=== PATIENT | female | born 1955 | race Caucasian/White ===

== ENCOUNTER 2019-03-03 10:00 | Outpatient (RCR) ==
--- NOTE | 2019-02-02 15:19 | RS.OPPTEV2 ---
Date of Note: 02/02/19 Visit #: 1 Number of visits approved by Insurance: NA Date of Evaluation: 02/02/19 Payer Source: MEDICARE Date of Onset/Injury/Change in Status: 01/20/19 Surgery Performed?: Yes Procedure Performed: Left TKA Date of Procedure: 01/20/19 Treatment Diagnosis: Left knee pain, Left knee stiffness, S/P left TKA History of Condition/Mechanism of Injury:: Patient reports progressive left knee pain and decreased functional ability, led to a total knee replacement. States the right knee also has significant osteoarthritis. Prior Level of Function.....Patient was independent with: ADL's, Self Care, Caregiving, Ambulation/Mobility, Community Integration/Access Functional Limitations: ADL's, Sitting, Standing, Bending, Squatting, Ambulation , Community Access/Integration Current Subjective/complaints:: Patient reports left knee pain and stiffness following TKA. She was in the hospital a few days and then went home and has not had Home Health. She was not given a HEP from the hospital. States she had to go back and have a hematoma aspirated on 01/27/19. Ms. Avendano has been icing the knee and performing ankle pumps. States she is getting around her home pretty good with the walker. She has no stairs at her apartment. States her swelling and redness has gone down since having the hematoma removed. States she mainly takes Tylenol for pain. She is already taking Tramadol for Lupus and it also seems to help her knee pain. Treatment Side (optional): Left Medical History Medical History Comments:: Lupus, Osteoarthritis in knees, back, hips, HTN, CVA Surgical History Comments:: Right ROSEMARIE, Lumbar surgery, Appendectomy, Cholecystectomy Smoking Status: Former smoker Hx Home Medications: Tramadol, Tylenol, Percocet Patient's Goals: Her goal is to return to her previous level of function. Pain Assessment - Pain Description Pain Location: left knee Pain Description: Aching, Acute Current Pain Intensity: 8-9/10 Worst Pain Intensity: 10/10 Functional Outcome Measure LE Functional Scale: 3 (=96.25% impairment) - G Codes & Severity Modifier G Codes & Modifier: NA Source of G Code score: NA Observation - Observation Inspection: Presents with healing, clean 6.5 inch incision. The most superior 1.5 inch of the incision is scabbed, and the inferior half of the incision has several areas of scabbing and dry skin. She demonstrates dull redness throughout the anterior aspect of the knee joint. This appears to be an improvement compared to a picture of the knee last week that the patient had on her phone. Girth Measurement Lower: Most superior aspect of the incision 47 cm, most inferior aspect 40 cm. Gait - Gait Pattern Gait Comments: Transfers sit to stand independently. Patient ambulates with rolling walker independently. She demonstrates decreased left heelstrike, stance phase, and toe off. Also demonstrates decreased left knee flexion during swing phase. - Left Knee ROM Left Knee Extension: -13 degrees from full extension Left Knee Flexion: 52 (degrees AROM) Knee ROM Limitations: Soft Tissue Tightness, Pain - Right Knee ROM Right Knee Extension: full extension Right Knee Flexion: 128 (degrees AROM) - Left Knee Strength Left Knee Extension: 4- Good- Left Knee Flexion: 4 Good - Right Knee Strength Right Knee Extension: 4+ Good + Right Knee Flexion: 4+ Good + Palpation Comments:: Patient reports minimal tenderness at the posterior aspect of the knee. She reports slight tenderness along the sides of the incision. Sensation - Sensation Comments: Describes slight numbness along the lateral side of the right knee. - Heat/Cryotherapy Treatment: Cryotherapy (with the leg elevated) Comments:: X 10 mins following evaluation and ROM. Interventions - Exercise/Activities/Manual Therapy Exercises/Activities: Assisted patient with left knee AROM flex/extension. Provided gentle stretching to the left heelcord with knee extension. Patient instructed in HEP of ankle pumps, QS, SAQ's, standing HS curls, seated knee flexion, and SLR's. Advised to perform SLR's with help if she demonstrates a lag at the knee. Also encouraged her to elevate the leg and to continue to ice the right knee to help decrease her swelling. Total minutes of Exercise: X 19 mins Manual Therapy: Grades I and II Joint Mobilizations into distraction. Patient reports this feels really good. HOME EXERCISE PROGRAM: ankle pumps, QS, SAQ's, standing HS curls, seated knee flexion, and SLR's. - Charges Timed Code Treatment Minutes: 19 mins Total Treatment Time: 57 mins Procedures billed for this date of service:: EVAL Low, Ex EVALUATION COMPLEXITY LEVEL EVALUATION COMPLEXITY LEVEL: HISTORY: Medium (Lupus, HTN, Hx of lumbar sx, right ROSEMARIE), EXAM OF BODY SYSTEMS: Medium (Gait, ROM, sensation, swelling, Muscle strength), CLINICAL PRESENTATION: Low (stable ), CLINICAL DECISION MAKING : Low Assessment Assessment: Patient presents to therapy almost two weeks s/p left TKA. She demonstrates marked limitation of left knee ROM. Reports knee pain and limited ROM make her daily selfcare and ADL's difficult. She lives alone. She has difficulty getting in and out of a vehicle and is not able to drive at this time. She demonstrates good potential to regain functional left knee AROM to return to her previous level of function and independence. Patient Education: Education of diagnosis, Body/Joint mechanics, Home Exercise Program, Home Safety, Activity Modification, Education of Plan of Care Rehab Potential: Good Short Term Goals Goal #1: Patient independent in HEP. Goal to be met by: 02/23/19 Goal #2: Left knee active flexion to 85 degrees. Goal to be met by: 02/23/19 Goal #3: Quad strength improved to 4/5. Goal to be met by: 02/23/19 Goal #4: Pt demo. appropriate use of cane with ambulation in department. Goal to be met by: 02/23/19 Campus Recruiter Goals Goal #1: Pt knows HEP and to continue ex's to maintain functional level at D/C. Goal to be met by: 03/19/19 Goal #2: Score on LE functional scale improved to 42/80. Goal to be met by: 03/19/19 Goal #3: Pt to amb. with cane community distances with minimal gt deviations. Goal to be met by: 03/19/19 Goal #4: Left knee AROM WFL's to perform all ADL's and prior functional activities. Goal to be met by: 03/19/19 Plan - Treatment to be Provided Procedures: Therapeutic Exercises, Therapeutic Activity, Gait Training, Neuromuscular Rehab, Patient Education Modalities: Electrical Stimulation, Cryotherapy, Hot Packs (to quads prior to exercise if needed) - Treatment Plan Frequency: 2-3 X week Duration: 6 weeks Dates of Penitentiary Goals: 03/19/19 Expiration date of current Insurance Approval:: NA - Treatment Code (1) Knee pain Code(s): M25.569 - PAIN IN UNSPECIFIED KNEE Qualifiers: Chronicity: acute Laterality: left Qualified Code(s): M25.562 - Pain in left knee (2) Knee stiffness Qualifiers: Laterality: left Qualified Code(s): M25.662 - Stiffness of left knee, not elsewhere classified (3) Aftercare following joint replacement surgery Code(s): Z47.1 - AFTERCARE FOLLOWING JOINT REPLACEMENT SURGERY Qualifiers: Joint replacement surgery site: knee Laterality: left Qualified Code(s): Z47.1 - Aftercare following joint replacement surgery; Z96.652 - Presence of left artificial knee joint (4) Gait abnormality Code(s): R26.9 - UNSPECIFIED ABNORMALITIES OF GAIT AND MOBILITY Comments: R26.9
--- NOTE | 2019-02-04 11:17 | RS.OPPTDN ---
Subjective Date of Note: 02/04/19 Visit #: 2 Number of visits approved by Insurance: NA Date of Evaluation: 02/02/19 Payer Source: MEDICARE Treatment Diagnosis: Left knee pain, Left knee stiffness, S/P left TKA Current Subjective/complaints:: Patient reports stiffness left knee and soreness behind knee and into calf. States she is working on HEP. Pain Assessment - Pain Description Pain Location: Left knee Pain Description: Tightness, Aching Current Pain Intensity: mod - Treatment Modality: Electrical Stim Unattended Parameters/Method Applied: [id number] HVGC to 295-310p.v. 4 large pads cross current to the left knee with CP prior to EX. Patient in supine with left LE elevated. Patient Position: Supine - Heat/Cryotherapy Treatment: Cryotherapy (with Estim ) Interventions - Exercise/Activities/Manual Therapy Exercises/Activities: Assisted patient with left knee AROM flex/extension. Gentle stretching to the left heelcord with knee extension. AP, QS with verbal and tactile cues. Assisted SLR and hip abd. Red theraband for resisted ankle df. Assisted heel slides. Sitting ABS assisted knee flexion/ext, passive flexion stretch, red theraband for zelaya curl. Discussed HEP. Total minutes of Exercise: 25mins Manual Therapy: Grades I and II Joint Mobilizations into distraction. Manual therapy for direction massage at the lower left leg. Total minutes of Manual Therapy: 7mins HOME EXERCISE PROGRAM: ankle pumps, QS, SAQ's, standing HS curls, seated knee flexion, and SLR's. - Objective Findings Observations,measurements,etc.: Left knee assisted left knee flexion to 90 degrees consistently sitting ABS. - Charges Timed Code Treatment Minutes: 32mins Total Treatment Time: 52mins Procedures billed for this date of service:: CP, Estim unattended, EX2 Assessment: Patient responding well to treatment and ROM improving. Patient Education: Body/Joint mechanics, Home Exercise Program, Activity Modification Patient demonstrates compliance with HEP?: Yes Short Term Goals Goal #1: Patient independent in HEP. Goal to be met by: 02/23/19 Progress towards Goal:: Progressing Goal #2: Left knee active flexion to 85 degrees. Goal to be met by: 02/23/19 Progress towards Goal:: Partially Met Goal #3: Quad strength improved to 4/5. Goal to be met by: 02/23/19 Goal #4: Pt demo. appropriate use of cane with ambulation in department. Goal to be met by: 02/23/19 Chief Diversity Officer Goals Goal #1: Pt knows HEP and to continue ex's to maintain functional level at D/C. Goal to be met by: 03/19/19 Goal #2: Score on LE functional scale improved to 42/80. Goal to be met by: 03/19/19 Goal #3: Pt to amb. with cane community distances with minimal gt deviations. Goal to be met by: 03/19/19 Goal #4: Left knee AROM WFL's to perform all ADL's and prior functional activities. Goal to be met by: 03/19/19 Plan Dates of Chief Diversity Officer Goals: 03/19/19 Expiration date of current Insurance Approval:: 03/19/19 PLAN: Continue modalities and progress exercise to increase patients functional activity level.
--- NOTE | 2019-02-06 13:56 | RS.OPPTDN ---
Subjective Date of Note: 02/06/19 Visit #: 3 Number of visits approved by Insurance: na Date of Evaluation: 02/02/19 Payer Source: MEDICARE Treatment Diagnosis: Left knee pain, Left knee stiffness, S/P left TKA Current Subjective/complaints:: Patient reports continued tightness left knee, but feels she is doing better each day. Pain Assessment - Pain Description Pain Location: left knee Pain Description: Tightness Current Pain Intensity: 3-4/10 - Treatment Modality: Electrical Stim Unattended Parameters/Method Applied: [id number] [facility] murray 275p.v. with 4 large pads cross current to the left knee with CP prior to EX. Patient Position: Supine - Heat/Cryotherapy Treatment: Cryotherapy (with Estim ) Interventions - Exercise/Activities/Manual Therapy Exercises/Activities: Assisted patient with left knee AROM flex/extension. Gentle stretching to the left heelcord with knee extension. AP, QS, and HS, with verbal and tactile cues. Assisted SLR and hip abd. SAQ and then bilateral SAQ with ball between feet. Isometric hip add with ball. Red theraband for resistive ham curl. Assisted heel slides. Sitting ABS assisted knee flexion/ext , passive flexion stretch, red theraband for zelaya curl. Discussed HEP. Total minutes of Exercise: 27mins Manual Therapy: Grades I and II Joint Mobilizations into distraction. Manual therapy for direction massage at the lower left leg. Total minutes of Manual Therapy: 4mins HOME EXERCISE PROGRAM: ankle pumps, QS, SAQ's, standing HS curls, seated knee flexion, and SLR's. - Objective Findings Observations,measurements,etc.: Active left knee flexion to 90 degrees consistently. - Charges Timed Code Treatment Minutes: 31mins Total Treatment Time: 51mins Procedures billed for this date of service:: CP, Estim unattended, EX2 Assessment: Patient progressing with exercise and demos increased flexibility with left knee ROM. Patient Education: Body/Joint mechanics, Home Exercise Program, Home Safety Patient demonstrates compliance with HEP?: Yes Short Term Goals Goal #1: Patient independent in HEP. Goal to be met by: 02/23/19 Progress towards Goal:: Progressing Goal #2: Left knee active flexion to 85 degrees. Goal to be met by: 02/23/19 Progress towards Goal:: Met Goal #3: Quad strength improved to 4/5. Goal to be met by: 02/23/19 Goal #4: Pt demo. appropriate use of cane with ambulation in department. Goal to be met by: 02/23/19 Detention Goals Goal #1: Pt knows HEP and to continue ex's to maintain functional level at D/C. Goal to be met by: 03/19/19 Goal #2: Score on LE functional scale improved to 42/80. Goal to be met by: 03/19/19 Goal #3: Pt to amb. with cane community distances with minimal gt deviations. Goal to be met by: 03/19/19 Goal #4: Left knee AROM WFL's to perform all ADL's and prior functional activities. Goal to be met by: 03/19/19 Plan Dates of Detention Goals: 03/19/19 Expiration date of current Insurance Approval:: 03/19/19 PLAN: Continue modalities and progress exercise to increase flexiblity and functional activity level.
--- NOTE | 2019-02-09 16:04 | RS.OPPTDN ---
Subjective Date of Note: 02/09/19 Visit #: 4 Number of visits approved by Insurance: NA Date of Evaluation: 02/02/19 Payer Source: MEDICARE Treatment Diagnosis: Left knee pain, Left knee stiffness, S/P left TKA Current Subjective/complaints:: Patient reports right knee continues to be sore and tight, but is improving. States she has increased flexibility following exercise today, including stationary bike. Pain Assessment - Pain Description Pain Location: left knee Pain Description: Tightness Pain Description: sore Current Pain Intensity: mild to mod Interventions - Exercise/Activities/Manual Therapy Exercises/Activities: AP, QS, and HS. Passive left knee extension and flexion. Assisted SLR and hip abd. SAQ. In sitting, isometric hip add with ball and bilateral LAQ with ball between feet. Red theraband for resistive ham curl. Passive flexion stretch. Patient assisted onto stationary bike and assisted with half and full revolutions forward and backward revolutions, 2 breaks. Total minutes of Exercise: 34mins Manual Therapy: Manual therapy for direction massage at the lower left leg. Total minutes of Manual Therapy: 2mins HOME EXERCISE PROGRAM: ankle pumps, QS, SAQ's, standing HS curls, seated knee flexion, and SLR's. - Charges Timed Code Treatment Minutes: 36mins Total Treatment Time: 56mins Procedures billed for this date of service:: HP, EX2 Assessment: Patient progressing well and able to perform full revolutions with and without assistance. Patient Education: Body/Joint mechanics, Home Exercise Program, Activity Modification Patient demonstrates compliance with HEP?: Yes Short Term Goals Goal #1: Patient independent in HEP. Goal to be met by: 02/23/19 Progress towards Goal:: Progressing Goal #2: Left knee active flexion to 85 degrees. Goal to be met by: 02/23/19 Progress towards Goal:: Met Goal #3: Quad strength improved to 4/5. Goal to be met by: 02/23/19 Progress towards Goal:: Progressing Goal #4: Pt demo. appropriate use of cane with ambulation in department. Goal to be met by: 02/23/19 [facility] Goals Goal #1: Pt knows HEP and to continue ex's to maintain functional level at D/C. Goal to be met by: 03/19/19 Goal #2: Score on LE functional scale improved to 42/80. Goal to be met by: 03/19/19 Goal #3: Pt to amb. with cane community distances with minimal gt deviations. Goal to be met by: 03/19/19 Goal #4: Left knee AROM WFL's to perform all ADL's and prior functional activities. Goal to be met by: 03/19/19 Plan Dates of Loft Patternmaker Goals: 03/19/19 Expiration date of current Insurance Approval:: 03/19/19 PLAN: Progress with ROM and strengthening of the left LE to increase gait and functional activity level.
--- NOTE | 2019-02-11 15:07 | RS.OPPTDN ---
Subjective Date of Note: 02/11/19 Visit #: 5 Number of visits approved by Insurance: na Date of Evaluation: 02/02/19 Payer Source: MEDICARE Treatment Diagnosis: Left knee pain, Left knee stiffness, S/P left TKA Current Subjective/complaints:: Patient reports improvement in ambulation in her home and with ROM of the left knee. Pain Assessment - Pain Description Pain Location: left knee - Heat/Cryotherapy Treatment: Hot Pack ([id number] to left knee joints and along hamstrings prior to EX. Patient in supine. ) Interventions - Exercise/Activities/Manual Therapy Exercises/Activities: AP, QS, and HS. Passive left knee extension and flexion. SLR, hip abd, and SLR/VMO. SAQ with 2# added. Isometric hip add with ball and bilateral SAQ with ball between feet. Increased to green theraband for resistive ham curl and ankle df. In sitting, passive flexion, isometrics and and green theraband resisted short ham curl. Patient assisted onto stationary bike and assisted with full revolutions forward and backward revolutions, 5mins. Back to sitting in chair and then on mat table for PROM and measurements taken. Total minutes of Exercise: 38mins Manual Therapy: Manual therapy for direction massage at the lower left leg. Total minutes of Manual Therapy: 3mins HOME EXERCISE PROGRAM: ankle pumps, QS, SAQ's, standing HS curls, seated knee flexion, and SLR's. - Objective Findings Observations,measurements,etc.: Active left knee flexion 92 degrees, AA flexion 95 degrees, and passive flexion to 102 degrees. - Charges Timed Code Treatment Minutes: 41mins Total Treatment Time: 61mins Procedures billed for this date of service:: HP, EX3 Assessment: Patient progressing well with ROM and strengthening of the left LE. Patient Education: Body/Joint mechanics, Home Exercise Program Patient demonstrates compliance with HEP?: Yes Short Term Goals Goal #1: Patient independent in HEP. Goal to be met by: 02/23/19 Progress towards Goal:: Progressing Goal #2: Left knee active flexion to 85 degrees. Goal to be met by: 02/23/19 Progress towards Goal:: Met Goal #3: Quad strength improved to 4/5. Goal to be met by: 02/23/19 Progress towards Goal:: Progressing Goal #4: Pt demo. appropriate use of cane with ambulation in department. Goal to be met by: 02/23/19 Progress towards Goal:: Progressing Associate Director Of Nursing Goals Goal #1: Pt knows HEP and to continue ex's to maintain functional level at D/C. Goal to be met by: 03/19/19 Progress towards goal: Progressing Goal #2: Score on LE functional scale improved to 42/80. Goal to be met by: 03/19/19 Goal #3: Pt to amb. with cane community distances with minimal gt deviations. Goal to be met by: 03/19/19 Goal #4: Left knee AROM WFL's to perform all ADL's and prior functional activities. Goal to be met by: 03/19/19 Progress towards goal: Progressing Plan Dates of Alf Goals: 03/19/19 Expiration date of current Insurance Approval:: 03/19/19 PLAN: Progress with ROM and strengthening of the left knee to improve patients ambulation and functional activity level.
--- NOTE | 2019-02-12 13:19 | RS.OPPTDN ---
Subjective Date of Note: 02/12/19 Visit #: 6 Number of visits approved by Insurance: na Date of Evaluation: 02/02/19 Payer Source: MEDICARE Treatment Diagnosis: Left knee pain, Left knee stiffness, S/P left TKA Current Subjective/complaints:: Patient reports improvement in left knee joint tightness. Pain Assessment - Pain Description Pain Location: left knee Current Pain Intensity: mild to mod - Heat/Cryotherapy Treatment: Hot Pack ([id number] left knee and along hamstrings. Patient in supine. ) Interventions - Exercise/Activities/Manual Therapy Exercises/Activities: QS and HS. Passive stretching hamstrings. Passive left knee extension and flexion. SLR, hip abd, and SLR/VMO. SAQ increased to 3#. Isometric hip add with ball and bilateral SAQ with ball between feet. Red theraband for resisted ankle df and ham curl. In sitting, passive flexion, isometrics and and yellow theraband resisted ham curl. Patient assisted onto stationary bike and assisted with full revolutions forward and backward revolutions, 6mins. Back to sitting in chair and then on mat table for PROM and measurements taken. Total minutes of Exercise: 39mins Manual Therapy: Manual therapy for direction massage at the lower left leg. Total minutes of Manual Therapy: 5mins HOME EXERCISE PROGRAM: ankle pumps, QS, SAQ's, standing HS curls, seated knee flexion, and SLR's. - Objective Findings Observations,measurements,etc.: Passive left knee flexion 104 degrees and active knee flexion 94 degrees. Active left knee extension to -4 degrees. Ambulates with cane in and out of department today. - Charges Timed Code Treatment Minutes: 44mins Total Treatment Time: 59mins Procedures billed for this date of service:: HP, EX3 Assessment: Patient progressing well with ROM and has progresed to ambulation with cane. Patient Education: Home Exercise Program, Home Safety, Activity Modification Patient demonstrates compliance with HEP?: Yes Short Term Goals Goal #1: Patient independent in HEP. Goal to be met by: 02/23/19 Progress towards Goal:: Progressing Goal #2: Left knee active flexion to 85 degrees. Goal to be met by: 02/23/19 Progress towards Goal:: Met Goal #3: Quad strength improved to 4/5. Goal to be met by: 02/23/19 Progress towards Goal:: Progressing Goal #4: Pt demo. appropriate use of cane with ambulation in department. Goal to be met by: 02/23/19 Progress towards Goal:: Met Cordwainer Goals Goal #1: Pt knows HEP and to continue ex's to maintain functional level at D/C. Goal to be met by: 03/19/19 Progress towards goal: Progressing Goal #2: Score on LE functional scale improved to 42/80. Goal to be met by: 03/19/19 Goal #3: Pt to amb. with cane community distances with minimal gt deviations. Goal to be met by: 03/19/19 Progress towards goal: Progressing Goal #4: Left knee AROM WFL's to perform all ADL's and prior functional activities. Goal to be met by: 03/19/19 Progress towards goal: Progressing Plan Dates of Residential Goals: 03/19/19 Expiration date of current Insurance Approval:: 03/19/19 PLAN: Progress with ROM and strengthening of the left LE to increase functional ambulation and activity level.
--- NOTE | 2019-02-16 14:36 | RS.CXNS ---
Date of scheduled appointment: 02/16/19 Type: Cancel (Patient calls to cancel appointment. States she has a follow-up with physician today.)
--- NOTE | 2019-02-18 11:27 | RS.OPPTDN ---
Subjective Date of Note: 02/18/19 Visit #: 7 Number of visits approved by Insurance: na Date of Evaluation: 02/02/19 Payer Source: MEDICARE Treatment Diagnosis: Left knee pain, Left knee stiffness, S/P left TKA Current Subjective/complaints:: Patient reports seeing her physician for a follow-up and states he gave her a good report on her progress. States she is to continue for 3 more weeks on current POC. Reports she is stiff today but continues to see improvement. States she was able to take a shower without help this morning. Pain Assessment - Pain Description Pain Location: left knee Pain Description: Tightness Pain Description: stiff Current Pain Intensity: mild to mod - Heat/Cryotherapy Treatment: Hot Pack ([id number] to the left knee joint and along hamstrings prior to EX. Patient in supine. ) Interventions - Exercise/Activities/Manual Therapy Exercises/Activities: QS and HS. Passive stretching hamstrings. Passive left knee extension and flexion. SLR, hip abd, and SLR/VMO. SAQ increased to 4#. Isometric hip add with ball and bilateral SAQ with ball between feet. Red theraband for resisted ankle df and ham curl. Additional stretching into flexion and extension. In sitting, passive flexion, isometrics and and red theraband resisted ham curl. Patient assisted onto stationary bike full revolutions, 5mins (not included in direct time). Total minutes of Exercise: 40mins/45mins Manual Therapy: NA HOME EXERCISE PROGRAM: ankle pumps, QS, SAQ's, standing HS curls, seated knee flexion, and SLR's. - Charges Timed Code Treatment Minutes: 40mins Total Treatment Time: 65mins Procedures billed for this date of service:: EX3, HP Assessment: Patient progressing well with strengthening exercise and with daily activities at home. Patient Education: Body/Joint mechanics, Home Exercise Program Patient demonstrates compliance with HEP?: Yes Short Term Goals Goal #1: Patient independent in HEP. Goal to be met by: 02/23/19 Progress towards Goal:: Progressing Goal #2: Left knee active flexion to 85 degrees. Goal to be met by: 02/23/19 Progress towards Goal:: Met Goal #3: Quad strength improved to 4/5. Goal to be met by: 02/23/19 Progress towards Goal:: Progressing Goal #4: Pt demo. appropriate use of cane with ambulation in department. Goal to be met by: 02/23/19 Progress towards Goal:: Met Retirement Goals Goal #1: Pt knows HEP and to continue ex's to maintain functional level at D/C. Goal to be met by: 03/19/19 Progress towards goal: Progressing Goal #2: Score on LE functional scale improved to 42/80. Goal to be met by: 03/19/19 Goal #3: Pt to amb. with cane community distances with minimal gt deviations. Goal to be met by: 03/19/19 Progress towards goal: Progressing Goal #4: Left knee AROM WFL's to perform all ADL's and prior functional activities. Goal to be met by: 03/19/19 Progress towards goal: Progressing Plan Dates of Retirement Goals: 03/19/19 Expiration date of current Insurance Approval:: 03/19/19 PLAN: Progress with strength and ROM of the left LE to increase functional gait and daily activity level.
--- NOTE | 2019-02-19 11:29 | RS.OPPTDN ---
Subjective Date of Note: 02/19/19 Visit #: 8 Number of visits approved by Insurance: na Date of Evaluation: 02/02/19 Payer Source: MEDICARE Treatment Diagnosis: Left knee pain, Left knee stiffness, S/P left TKA Current Subjective/complaints:: Patient reports stiffness left knee joint, but increased flexilibility following friction and soft tissue massage along the incision line. Pain Assessment - Pain Description Pain Location: left knee Pain Description: Tightness, Dull, Aching Current Pain Intensity: 0 at rest, mod with end range stretch - Heat/Cryotherapy Treatment: Hot Pack ([id number] to the left knee and along hamstrings prior to EX. Patient in supine. ) Interventions - Exercise/Activities/Manual Therapy Exercises/Activities: QS and HS. Passive stretching hamstrings. Passive left knee extension and flexion. SLR, hip abd, and SLR/VMO. SAQ with 4#. Isometric hip add with ball. Bilateral SAQ with ball between feet and 4# to the left ankle. Red theraband for resisted ankle df and ham curl. Yellow theraband for resisted hip add and hip abd. Additional stretching into flexion and extension. In sitting, passive flexion and isometrics. Patient assisted onto stationary bike full revolutions, 5mins (not included in direct time). Total minutes of Exercise: 39mins/44mins Manual Therapy: NA HOME EXERCISE PROGRAM: ankle pumps, QS, SAQ's, standing HS curls, seated knee flexion, and SLR's. - Objective Findings Observations,measurements,etc.: Active left knee flexion to 101 degrees, sitting ABS following exercise/stretching. - Charges Timed Code Treatment Minutes: 39mins Total Treatment Time: 59mins Procedures billed for this date of service:: HP, EX3 Assessment: Patient progressing well with AROM and strengthening. Patient Education: Home Exercise Program Patient demonstrates compliance with HEP?: Yes Short Term Goals Goal #1: Patient independent in HEP. Goal to be met by: 02/23/19 Progress towards Goal:: Progressing Goal #2: Left knee active flexion to 85 degrees. Goal to be met by: 02/23/19 Progress towards Goal:: Met Goal #3: Quad strength improved to 4/5. Goal to be met by: 02/23/19 Progress towards Goal:: Progressing Goal #4: Pt demo. appropriate use of cane with ambulation in department. Goal to be met by: 02/23/19 Progress towards Goal:: Met Senior Technical Architect Goals Goal #1: Pt knows HEP and to continue ex's to maintain functional level at D/C. Goal to be met by: 03/19/19 Progress towards goal: Progressing Goal #2: Score on LE functional scale improved to 42/80. Goal to be met by: 03/19/19 Goal #3: Pt to amb. with cane community distances with minimal gt deviations. Goal to be met by: 03/19/19 Progress towards goal: Progressing Goal #4: Left knee AROM WFL's to perform all ADL's and prior functional activities. Goal to be met by: 03/19/19 Progress towards goal: Progressing Plan Dates of Senior Technical Architect Goals: 03/19/19 Expiration date of current Insurance Approval:: 03/19/19 PLAN: Progress with ROM and strengthening to increase functional ambulation and activity level.
--- NOTE | 2019-02-24 11:52 | RS.OPPTDN ---
Subjective Date of Note: 02/24/19 Visit #: 9 Number of visits approved by Insurance: NA Date of Evaluation: 02/02/19 Payer Source: MEDICARE Treatment Diagnosis: Left knee pain, Left knee stiffness, S/P left TKA Current Subjective/complaints:: Patient reports left knee joint is stiff, but continues to see improvement each day. States she was able to drive herself to therapy today. Pain Assessment - Pain Description Pain Location: left knee Pain Description: Tightness Current Pain Intensity: mild Worst Pain Intensity: mod+ with end range stretch - Heat/Cryotherapy Treatment: Hot Pack ([id number] to the left knee and along hamstrings prior to EX. Patient in supine. ) Interventions - Exercise/Activities/Manual Therapy Exercises/Activities: QS and HS. Passive stretching hamstrings. Passive left knee extension and flexion. SLR, hip abd, and SLR/VMO. SAQ with 4#. Isometric hip add with ball. Bilateral SAQ with ball between feet and 4# to the left ankle. Green theraband for resisted ankle df and ham curl. Yellow theraband for resisted hip add and hip abd. Additional stretching into flexion and extension. In sitting, passive flexion and green theraband for resisted ham curl. Patient assisted onto stationary bike full revolutions, 11mins (not included in direct time). Total minutes of Exercise: 39mins/50mins Manual Therapy: NA HOME EXERCISE PROGRAM: ankle pumps, QS, SAQ's, standing HS curls, seated knee flexion, and SLR's. - Objective Findings Observations,measurements,etc.: Demos amb with cane with mild gait deviation due to slight decrease in stance phase on the left LE. - Charges Timed Code Treatment Minutes: 39mins Total Treatment Time: 65mins Procedures billed for this date of service:: HP, EX3 Assessment: Patient progressing well with ambulation, strengthening, ROM, and patient is now driving independently. Patient Education: Home Exercise Program Patient demonstrates compliance with HEP?: Yes Short Term Goals Goal #1: Patient independent in HEP. Goal to be met by: 02/23/19 Progress towards Goal:: Progressing Goal #2: Left knee active flexion to 85 degrees. Goal to be met by: 02/23/19 Progress towards Goal:: Met Goal #3: Quad strength improved to 4/5. Goal to be met by: 02/23/19 Progress towards Goal:: Progressing Goal #4: Pt demo. appropriate use of cane with ambulation in department. Goal to be met by: 02/23/19 Progress towards Goal:: Met Detention Goals Goal #1: Pt knows HEP and to continue ex's to maintain functional level at D/C. Goal to be met by: 03/19/19 Progress towards goal: Progressing Goal #2: Score on LE functional scale improved to 42/80. Goal to be met by: 03/19/19 Goal #3: Pt to amb. with cane community distances with minimal gt deviations. Goal to be met by: 03/19/19 Progress towards goal: Met Goal #4: Left knee AROM WFL's to perform all ADL's and prior functional activities. Goal to be met by: 03/19/19 Progress towards goal: Progressing Plan Dates of [employer] Rep Goals: 03/19/19 Expiration date of current Insurance Approval:: 03/19/19 PLAN: Progress with strength and ROM to increase patients functional activity level.
--- NOTE | 2019-02-26 10:52 | RS.CXNS ---
Date of scheduled appointment: 02/26/19 Type: Cancel (Patient calls to cancel appointment. States she is sick today.)
--- NOTE | 2019-03-03 13:20 | RS.OPPTDN ---
Subjective Date of Note: 03/03/19 Visit #: 10 Number of visits approved by Insurance: na Date of Evaluation: 02/02/19 Payer Source: MEDICARE Treatment Diagnosis: Left knee pain, Left knee stiffness, S/P left TKA Current Subjective/complaints:: Patient reports she is pleased with her progress. States she is walking short community distances with cane and is driving to therapy. She reports difficulty with more than light ADL's and with going up more than 1-2 steps. She also has difficulty with don/doff socks and shoes. Pain Assessment - Pain Description Pain Location: left knee Pain Description: Tightness Current Pain Intensity: mild - Heat/Cryotherapy Treatment: Hot Pack ([id number] to the left knee and along hamstrings prior to EX. Patient in supine. ) Interventions - Exercise/Activities/Manual Therapy Exercises/Activities: QS and HS. Passive stretching hamstrings. Passive left knee extension and flexion. SLR with 1 1/2#. Hip abd, and SLR/VMO. SAQ with 4# . Isometric hip add and isometric ham sets, both with ball. Green theraband for resisted ankle df and ham curl. Additional stretching into flexion and extension. In sitting, passive flexion and green theraband for resisted ham curl. Patient assisted onto stationary bike full revolutions, 5mins (not included in direct time). Leg press 45#, 30reps slow pace. Total minutes of Exercise: 38mins/43mins Manual Therapy: NA HOME EXERCISE PROGRAM: ankle pumps, QS, SAQ's, standing HS curls, seated knee flexion, and SLR's. - Objective Findings Observations,measurements,etc.: Left knee passive flexion 112 degrees, active flexion 108 degrees, and extension -2 degrees and to neutral with passive stretch. - Charges Timed Code Treatment Minutes: 38mins Total Treatment Time: 58mins Procedures billed for this date of service:: HP, EX3 Assessment: Patient progressing well with strength and ROM of the left knee. She will benefit from progressive strengthening to improve her gait and her independence with functional ADL's, as she lives alone. Patient Education: Home Exercise Program Patient demonstrates compliance with HEP?: Yes Short Term Goals Goal #1: Patient independent in HEP. Goal to be met by: 02/23/19 Progress towards Goal:: Progressing Goal #2: Left knee active flexion to 85 degrees. Goal to be met by: 02/23/19 Progress towards Goal:: Met Goal #3: Quad strength improved to 4/5. Goal to be met by: 02/23/19 Progress towards Goal:: Partially Met (4/5 MMT within given range) Goal #4: Pt demo. appropriate use of cane with ambulation in department. Goal to be met by: 02/23/19 Progress towards Goal:: Met Fdc Goals Goal #1: Pt knows HEP and to continue ex's to maintain functional level at D/C. Goal to be met by: 03/19/19 Progress towards goal: Progressing Goal #2: Score on LE functional scale improved to 42/80. Goal to be met by: 03/19/19 Goal #3: Pt to amb. with cane community distances with minimal gt deviations. Goal to be met by: 03/19/19 Progress towards goal: Met Goal #4: Left knee AROM WFL's to perform all ADL's and prior functional activities. Goal to be met by: 03/19/19 Progress towards goal: Progressing Plan Dates of Cis[employer] Room Working Supervisor Goals: 03/19/19 Expiration date of current Insurance Approval:: 03/19/19 PLAN: Continue ROM and strengthening of the left knee, progressing toward treatment goals and independence with ADL's.
--- NOTE | 2019-03-04 15:22 | RS.PTSUM ---
Progress Note/Summary Date of Note: 03/03/19 Date of Evaluation: 02/02/19 Number of Visits: 10 Reporting Period for this Progress Note: 02/02/19 through 03/03/19 Current Complaints/Gains: Ms. Avendano states she is walking better with the cane, short distances in the community. States she is doing better with her HEP and driving. She describes continued difficulty with some ADL's, sabas/doffing socks and shoes, and ascend/descending more than 1-2 steps. Objective Measurements/Presentation: Active left knee ROM -2 to 108 degrees. PROM flexion 112 degrees, extension to neutral in passive stretch. Demonstrates ambulation with cane with mild gait deviation of decreased stance phase on the left LE. Score of 38/80=52.5% impairment on LE functional scale. G Codes: NA Source of G Code Score: Na - Short Term Goals Goal #1: Patient independent in HEP. Goal to be met by: 03/11/19 Progress towards Goal:: Progressing Goal #2: Left knee active flexion to 85 degrees. Goal to be met by: 02/23/19 Progress towards Goal:: Met Goal #3: Quad strength improved to 4/5. Goal to be met by: 02/23/19 Progress towards Goal:: Partially Met (4/5 MMT within given range) Goal #4: Pt demo. appropriate use of cane with ambulation in department. Goal to be met by: 02/23/19 Progress towards Goal:: Met - [facility] Goals Goal #1: Pt knows HEP and to continue ex's to maintain functional level at D/C. Goal to be met by: 03/19/19 Progress towards goal: Progressing Goal #2: Score on LE functional scale improved to 42/80. Goal to be met by: 03/19/19 Progress towards goal: Progressing (38/80 on this date) Goal #3: Pt to amb. with cane community distances with minimal gt deviations. Goal to be met by: 03/19/19 Progress towards goal: Met Goal #4: Left knee AROM WFL's to perform all ADL's and prior functional activities. Goal to be met by: 03/19/19 Progress towards goal: Progressing - Assessment Assessment of Improvement/Progress: Ms. Avendano is making good progress with her ROM and shows good improvement per her self scoring of the LE functional scale. She shows potential to gain further ROM and independence with exercises activities to improve her ability with ADL's and gait. Summary: Patient has made progress towards goals., Patient demonstrates potential to gain increased function with therapy - Plan Plan: Continue Plan of Care Frequency: 2 X week Duration: 1 week Dates of [facility] Goals: 03/19/19 Expiration date of current Insurance Approval:: NA
== END 2019-03-03 23:59 ==
PROVIDERS: ATTEND Orthopaedic Surgery
DX: M17.12 Unilateral primary osteoarthritis, left knee (principal); M25.562 Pain in left knee; M25.662 Stiffness of left knee, not elsewhere classified; Z47.1 Aftercare following joint replacement surgery; Z96.652 Presence of left artificial knee joint; R26.9 Unspecified abnormalities of gait and mobility

== ENCOUNTER 2019-03-17 09:00 | Outpatient (RCR) ==
--- NOTE | 2019-03-05 11:57 | RS.OPPTDN ---
Subjective Date of Note: 03/05/19 Visit #: 11 Number of visits approved by Insurance: na Date of Evaluation: 02/02/19 Payer Source: MEDICARE Treatment Diagnosis: Left knee pain, Left knee stiffness, S/P left TKA Current Subjective/complaints:: Patient reports continued improvement in left knee flexibility and with ability to perform daily activities. Pain Assessment - Pain Description Pain Location: left knee Current Pain Intensity: mild Other Comments regarding Pain:: Discomfort at end range with stretching. Mil discomfort seems to be related to rainy weather. - Heat/Cryotherapy Treatment: Hot Pack ([id number] to the left knee and along hamstrings prior to EX. Patient in supine. ) Interventions - Exercise/Activities/Manual Therapy Exercises/Activities: QS and HS. Passive stretching hamstrings. Passive left knee extension and flexion. Increased to 2# for SLR. Hip abd, and SLR/VMO. Increased to 5# for SAQ. Isometric hip add and isometric ham sets, both with ball. Green theraband for resisted ankle df and ham curl. Red theraband for resisted hip add and hip abd with knee in full extension. Additional stretching into flexion and extension. In sitting, passive flexion and green theraband for resisted ham curl. Leg press 45#, increased to 50reps at slow pace. Total minutes of Exercise: 43mins Manual Therapy: NA HOME EXERCISE PROGRAM: ankle pumps, QS, SAQ's, standing HS curls, seated knee flexion, and SLR's. - Charges Timed Code Treatment Minutes: 43mins Total Treatment Time: 58mins Procedures billed for this date of service:: HP, EX3 Assessment: Patient progressing with strengthening exercises and with reports of improved ability with functional daily activities. Patient Education: Body/Joint mechanics, Home Exercise Program, Activity Modification Patient demonstrates compliance with HEP?: Yes Short Term Goals Goal #1: Patient independent in HEP. Goal to be met by: 02/23/19 Progress towards Goal:: Met Goal #2: Left knee active flexion to 85 degrees. Goal to be met by: 02/23/19 Progress towards Goal:: Met Goal #3: Quad strength improved to 4/5. Goal to be met by: 02/23/19 Progress towards Goal:: Partially Met (4/5 MMT within given range) Goal #4: Pt demo. appropriate use of cane with ambulation in department. Goal to be met by: 02/23/19 Progress towards Goal:: Met Paleontology Teacher Goals Goal #1: Pt knows HEP and to continue ex's to maintain functional level at D/C. Goal to be met by: 03/19/19 Progress towards goal: Progressing Goal #2: Score on LE functional scale improved to 42/80. Goal to be met by: 03/19/19 Goal #3: Pt to amb. with cane community distances with minimal gt deviations. Goal to be met by: 03/19/19 Progress towards goal: Met Goal #4: Left knee AROM WFL's to perform all ADL's and prior functional activities. Goal to be met by: 03/19/19 Progress towards goal: Progressing Plan Dates of Senior Living Goals: 03/19/19 Expiration date of current Insurance Approval:: 03/19/19 PLAN: Progress with ROM and strengthening of the left knee to increase functional activity level.
--- NOTE | 2019-03-09 12:09 | RS.OPPTDN ---
Subjective Date of Note: 03/09/19 Visit #: 12 Number of visits approved by Insurance: na Date of Evaluation: 02/02/19 Payer Source: MEDICARE Treatment Diagnosis: Left knee pain, Left knee stiffness, S/P left TKA Current Subjective/complaints:: Patient reports tightness behind left knee. States she is walking better but notices slight limp. Pain Assessment - Pain Description Pain Location: left knee Current Pain Intensity: 0 Other Comments regarding Pain:: Reports no pain, but joint stiffness/tightness - Heat/Cryotherapy Treatment: Hot Pack ([id number] to the left knee and along hamstrings prior to EX. Supine. ) Interventions - Exercise/Activities/Manual Therapy Exercises/Activities: QS and HS. Passive stretching hamstrings. Passive left knee extension and flexion. Patella mobs and scar massage. 2# SLR. 1 1/2# for SLR/VMO. Increased to 5# for SAQ. Isometric hip add and isometric ham sets, both with ball. Green theraband for resisted ankle df and ham curl. Red theraband for resisted hip add and hip abd with knee in full extension. Additional stretching into flexion and extension. In sitting, green theraband for resisted ham curl, and FAQ 4#. Leg press 45#, increased to 50reps at slow pace. Lateral step-ups on 4" stepper board. Stationary bike 7mins(not included direct time). Total minutes of Exercise: 38mins/45mins Manual Therapy: NA HOME EXERCISE PROGRAM: ankle pumps, QS, SAQ's, standing HS curls, seated knee flexion, and SLR's. - Charges Timed Code Treatment Minutes: 38mins Total Treatment Time: 60mins Procedures billed for this date of service:: HP, EX3 Assessment: Patient progressing with strengtehning and working on stepper board to improve her ability to go up and down stairs. Patient Education: Home Exercise Program Patient demonstrates compliance with HEP?: Yes Short Term Goals Goal #1: Patient independent in HEP. Goal to be met by: 02/23/19 Progress towards Goal:: Met Goal #2: Left knee active flexion to 85 degrees. Goal to be met by: 02/23/19 Progress towards Goal:: Met Goal #3: Quad strength improved to 4/5. Goal to be met by: 02/23/19 Progress towards Goal:: Partially Met (4/5 MMT within given range) Goal #4: Pt demo. appropriate use of cane with ambulation in department. Goal to be met by: 02/23/19 Progress towards Goal:: Met Jewelry Technician Goals Goal #1: Pt knows HEP and to continue ex's to maintain functional level at D/C. Goal to be met by: 03/19/19 Progress towards goal: Progressing Goal #2: Score on LE functional scale improved to 42/80. Goal to be met by: 03/19/19 Goal #3: Pt to amb. with cane community distances with minimal gt deviations. Goal to be met by: 03/19/19 Progress towards goal: Met Goal #4: Left knee AROM WFL's to perform all ADL's and prior functional activities. Goal to be met by: 03/19/19 Progress towards goal: Progressing Plan Dates of Care Home Goals: 03/19/19 Expiration date of current Insurance Approval:: 03/19/19 PLAN: Progress strengthening to increase patients functional activity level.
--- NOTE | 2019-03-12 16:37 | RS.OPPTDN ---
Subjective Date of Note: 03/12/19 Visit #: 13 Number of visits approved by Insurance: na Date of Evaluation: 02/02/19 Payer Source: MEDICARE Treatment Diagnosis: Left knee pain, Left knee stiffness, S/P left TKA Current Subjective/complaints:: Reports she is doing more houosework. States she is doing a little more walking in the community, but continues to have decreased weight on left LE due to discomfort if she walks longer distances. Pain Assessment - Pain Description Pain Location: left knee Pain Description: Tightness Current Pain Intensity: 0 - Heat/Cryotherapy Treatment: Hot Pack ([id number] to the hamstrings and left knee joint prior to EX. Patient in supine. ) Interventions - Exercise/Activities/Manual Therapy Exercises/Activities: Focus on passive stretching hamstrings and heel cords. Passive left knee extension and flexion. Patella mobs and scar massage. 2# SLR. SLR/VMO. 5# for SAQ. Isometric hip add and isometric ham sets, both with ball. Green theraband for resisted ankle df and ham curl. Red theraband for resisted hip add and hip abd with knee in full extension. Additional stretching into flexion and extension, and hamstring stretching. In sitting, green theraband for resisted ham curl, and FAQ 4#. Stationary bike 7mins(not included direct time). Total minutes of Exercise: 31mins/38mins Manual Therapy: NA HOME EXERCISE PROGRAM: ankle pumps, QS, SAQ's, standing HS curls, seated knee flexion, and SLR's. - Charges Timed Code Treatment Minutes: 31mins Total Treatment Time: 58mins Procedures billed for this date of service:: HP, EX2 Assessment: Focus on long stretching today to increase flexibility. Patient is progressing well with strengthening and with functional activity level. Patient demonstrates compliance with HEP?: Yes Short Term Goals Goal #1: Patient independent in HEP. Goal to be met by: 02/23/19 Progress towards Goal:: Met Goal #2: Left knee active flexion to 85 degrees. Goal to be met by: 02/23/19 Progress towards Goal:: Met Goal #3: Quad strength improved to 4/5. Goal to be met by: 02/23/19 Progress towards Goal:: Partially Met (4/5 MMT within given range) Goal #4: Pt demo. appropriate use of cane with ambulation in department. 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 Goal to be met by: 03/19/19 Progress towards goal: Progressing Goal #2: Score on LE functional scale improved to 42/80. Goal to be met by: 03/19/19 Goal #3: Pt to amb. with cane community distances with minimal gt deviations. Goal to be met by: 03/19/19 Progress towards goal: Met Goal #4: Left knee AROM WFL's to perform all ADL's and prior functional activities. Goal to be met by: 03/19/19 Progress towards goal: Progressing Plan Dates of Fdc Goals: 03/19/19 Expiration date of current Insurance Approval:: 03/19/19 PLAN: Progress with strength and ROM.
--- NOTE | 2019-03-17 11:48 | RS.OPPTDN ---
Subjective Date of Note: 03/17/19 Visit #: 14 Number of visits approved by Insurance: na Date of Evaluation: 02/02/19 Payer Source: MEDICARE Treatment Diagnosis: Left knee pain, Left knee stiffness, S/P left TKA Current Subjective/complaints:: Patient reports she is walking better. States when she is out in the community whe uses cane due to gait deviation caused by left hip weakness. Pain Assessment - Pain Description Pain Location: left knee Pain Description: Tightness, Aching Current Pain Intensity: 0 at present, mild with activity - Heat/Cryotherapy Treatment: Hot Pack ([id number] to the left knee joint and along the hamstrings prior to EX. patient in supine. ) Interventions - Exercise/Activities/Manual Therapy Exercises/Activities: Passive stretching hamstrings and heel cords. Passive left knee extension and flexion. Patella mobs and scar massage. 2# for SLR. SLR /VMO no weight. 5# for SAQ. Bilateral SAQ with ball between feet, 3# to each ankle. Isometric hip add, isometric ankle inversion/hip IR, and isometric ham sets, all with ball. Green theraband for resisted ankle df. Additional stretching into flexion and extension, and hamstring stretching. In sitting, green theraband for resisted ham curl, and FAQ 4#. Leg press 30# 2s/10reps, then 45# 2s/10reps. Stationary bike 5mins(not included direct time). Standing hip abd with red theraband. Total minutes of Exercise: 32mins/37mins Manual Therapy: NA HOME EXERCISE PROGRAM: ankle pumps, QS, SAQ's, standing HS curls, seated knee flexion, and SLR's. Standing resisted hip abd with red theraband. - Charges Timed Code Treatment Minutes: 32mins Total Treatment Time: 52mins Procedures billed for this date of service:: HP, EX2 Assessment: Patient continues to report consistent progress. She is working toward ambulation in community without cane. Short Term Goals Goal #1: Patient independent in HEP. Goal to be met by: 02/23/19 Progress towards Goal:: Met Goal #2: Left knee active flexion to 85 degrees. Goal to be met by: 02/23/19 Progress towards Goal:: Met Goal #3: Quad strength improved to 4/5. Goal to be met by: 02/23/19 Progress towards Goal:: Partially Met (4/5 MMT within given range) Goal #4: Pt demo. appropriate use of cane with ambulation in department. 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 Goal to be met by: 03/19/19 Progress towards goal: Progressing Goal #2: Score on LE functional scale improved to 42/80. Goal to be met by: 03/19/19 Goal #3: Pt to amb. with cane community distances with minimal gt deviations. Goal to be met by: 03/19/19 Progress towards goal: Met Goal #4: Left knee AROM WFL's to perform all ADL's and prior functional activities. Goal to be met by: 03/19/19 Progress towards goal: Progressing Plan Dates of Skilled Nursing Goals: 03/19/19 Expiration date of current Insurance Approval:: 03/19/19 PLAN: Continue progression of ROM and strengthening to increase patients functional independence and activity level.
--- NOTE | 2019-03-19 15:48 | RS.CXNS ---
Date of scheduled appointment: 03/19/19 Type: Cancel (Patient calls to cancel appointment today. States she has had a slair-up of her lupus and is not feeling well. States she know this was her last scheduled appointment and will continue HEP.)
--- NOTE | 2019-04-02 15:45 | RS.OPPTDC ---
Date of Discharge: 03/19/19 Date of Evaluation: 02/02/19 Treatment Diagnosis: Left knee pain, Left knee stiffness, S/P left TKA Current Complaints/Gains: Beata reports increased independence with ambulation and ADL's at home. She ambulates in the community with a cane. She feels confident with her HEP. Functional Outcome Measure - G Codes & Severity Modifier G Codes & Modifier: NA Source of G Code score: NA Interventions - Exercise/Activities/Manual Therapy Exercises/Activities: NA Manual Therapy: NA HOME EXERCISE PROGRAM: ankle pumps, QS, SAQ's, standing HS curls, seated knee flexion, and SLR's. Standing resisted hip abd with red theraband. - Objective Findings Observations,measurements,etc.: Left knee AROM 0 to 115 degrees. Passive flexion to 119 degrees. Able to ambulate in department without cane. Demonstrates decreased stance on left LE with or without cane. - Charges Timed Code Treatment Minutes: NA Total Treatment Time: Na Procedures billed for this date of service:: NA Short Term Goals Goal #1: Patient independent in HEP. Goal to be met by: 02/23/19 Progress towards Goal:: Met Goal #2: Left knee active flexion to 85 degrees. Goal to be met by: 02/23/19 Progress towards Goal:: Met Goal #3: Quad strength improved to 4/5. Goal to be met by: 02/23/19 Progress towards Goal:: Partially Met Goal #4: Pt demo. appropriate use of cane with ambulation in department. Goal to be met by: 02/23/19 Progress towards Goal:: Met Long-Term Goals Goal #1: Pt knows HEP and to continue ex's to maintain functional level at D/C. Goal to be met by: 03/19/19 Progress towards goal: Met Goal #2: Score on LE functional scale improved to 42/80. Goal to be met by: 03/19/19 Comments: Patient cancelled last scheduled appt due to Lupus flair up. FOM not scored Goal #3: Pt to amb. with cane community distances with minimal gt deviations. Goal to be met by: 03/19/19 Progress towards goal: Met Goal #4: Left knee AROM WFL's to perform all ADL's and prior functional activities. Goal to be met by: 03/19/19 Progress towards goal: Met Plan Reason for Discharge:: No Further Skilled Therapy Indicated
== END 2019-04-03 23:59 ==
PROVIDERS: ATTEND Orthopaedic Surgery
DX: M17.12 Unilateral primary osteoarthritis, left knee (principal)